=== PATIENT | female | born 1975 ===

== ENCOUNTER 2022-01-30 06:28 | Day surgery (SDC) | payer OTHER ==
[~2022-01-30] VITALS: Ht 162.6 cm; Wt 108.9 kg
[~2022-01-30 06:28] MED LIST: CRESTOR10 MG PO; HYDROCHLOROTH12.5 MG PO; JANUMET 50-5001 EACH PO; TOPROL XL50 M1 PO
== END 2022-01-30 20:30 | disposition home or self-care (01) ==
LOC: CIR.AMB 06:28
PROVIDERS: ATTEND Colon & Rectal Surgery
DX: K60.1 Chronic anal fissure (principal); K92.2 Gastrointestinal hemorrhage, unspecified; Z20.822 Contact with and (suspected) exposure to COVID-19; K62.4 Stenosis of anus and rectum; I10 Essential (primary) hypertension; Z87.891 Personal history of nicotine dependence